=== PATIENT | male | born 1995 | race African-American/Black ===

== ENCOUNTER → 2020-09-21 | Outpatient (CLI) | payer OTHER ==
--- NOTE | ~2020-09-21 | PF ---
[address] [address] PULMONARY FUNCTION REPORT Name: MARIA E MURRAY Room: [facility] M.R.#: [id number] Admission: 09/21/20 Attend Phys: Solomon De Souza MD Discharge: Date of : 89 Report #: [id number] THIS REPORT FOR: cc: Solomon De Souza MD,Solomon Thakur,Nghia SANDY ~ DATE OF SERVICE: 09/21/2020 The FEV1/FVC ratio is normal at 84% with an FVC normal at 90% and FEV1 normal at 92%. The [id number] is also normal at 101%. After the administration of a bronchodilator, there is no significant change in any of these values. The patient's post-bronchodilator FEV1 is noted to be 4.97 liters. IMPRESSION: Normal spirometry with reversibility. It is noted that normal spirometry with reversibility; however, does not rule out bronchial asthma. By: [id number] Thakur MD /nt
--- NOTE | ~2020-09-21 | PF ---
[address] [address] PULMONARY FUNCTION REPORT Name: MARIA E MURRAY Room: [facility] M.R.#: [id number] Admission: 09/21/20 Attend Phys: Solomon De Souza MD Discharge: Date of : 89 Report #: [id number] THIS REPORT FOR: cc: Solomon De Souza MD,Solomon Thakur,Nghia SANDY ~ DATE OF SERVICE: 09/21/2020 SPIROMETRY The FEV1/FVC ratio is normal at 84% with an FVC normal at 90%. The FEV1 is normal at 92%. [id number] is also normal at 101%. After the administration of a bronchodilator, there is no significant change in any of these values. The patient's post-bronchodilator FEV1 is noted to be 4.97 liters. IMPRESSION: Normal spirometry with reversibility. Note that a normal spirometry with reversibility does not rule out bronchial asthma. By: [id number] Wilian Thakur MD /nt
--- NOTE | 2020-09-21 12:59 | 2DMMODE ---
[place] [address] 2 D/M-MODE ECHOCARDIOGRAM Name: MARIA E MURRAY Room: [facility]#: [id number] Admission: 09/21/20 Attend Phys: Solomon De Souza MD Discharge: Date of : 89 Date of Service: 09/21/20 1259 Report #: [id number] THIS REPORT FOR: cc: Solomon De Souza MD,Solomon Thompson,Dre Wagner MD [facility] ~ APPROVED REPORT Study performed: 09/21/2020 10:23:37 EXAM: Comprehensive 2D, Doppler, and color-flow Echocardiogram Patient Location: Out-Patient BSA: 2.31 HR: 72 bpm BP: 132/78 mmHg Other Information Study Quality: Good Indications Dyspnea Chest Pain 2D Dimensions IVSd: 8.19 (7-11mm) LVOT Diam: 21.81 (18-24mm) LVDd: 48.97 mm PWd: 8.99 (7-11mm) Ascending Ao: 30.74 (22-36mm) LVDs: 30.27 (25-40mm) Aortic Root: 34.37 mm Volumes Left Atrial Volume (Systole) LA ESV Index: 11.10 mL/m2 Aortic Valve AoV Peak Júnior.: 1.00 m/s AO Peak Gr.: 3.97 mmHg LVOT Max P.07 mmHg AO Mean Gr.: 2.27 mmHg LVOT Mean P.61 mmHg LVOT Max V: 0.88 m/s AO V2 VTI: 15.75 cm LVOT Mean V: 0.59 m/s YVONNE (VTI): 3.89 cm2 LVOT V1 VTI: 16.41 [place] [address] 2 D/M-MODE ECHOCARDIOGRAM Name: MARIA E MURRAY Room: [facility]#: [id number] Admission: 09/21/20 Attend Phys: Solomon De Souza MD Discharge: Date of : 89 Date of Service: 09/21/20 1259 Report #: [id number] E/A Ratio: 0.79 MV Decel. Time: 244.49 ms MV E Max Júnior.: 0.40 m/s MV PHT: 70.90 ms MVA (PHT): 3.10 cm2 TDI E/Lateral E': 3.33 E/Medial E': 5.71 Medial E' Júnior.: 0.07 m/s Lateral E' Júnior.: 0.12 m/s Pulmonary Valve PV Peak Júnior.: 0.90 m/s PV Peak Gr.: 3.27 mmHg Left Ventricle The left ventricle is normal size. There is normal LV segmental wall motion. There is normal left ventricular wall thickness. Left ventricular systolic function is normal. LVEF is 55-60%. The left ventricular diastolic function is normal. Right Ventricle The right ventricle is normal size. The right ventricular systolic function is normal. Atria The left atrium size is normal. The right atrium size is normal. Aortic Valve The aortic valve is normal in structure. No aortic regurgitation is present. There is no aortic valvular stenosis. Mitral Valve The mitral valve is normal in structure. There is no mitral valve regurgitation noted. No evidence of mitral valve stenosis. Tricuspid Valve The tricuspid valve is normal in structure. There is no tricuspid valve regurgitation noted. Pulmonic Valve The pulmonary valve is normal in structure. There is no pulmonic valvular regurgitation. Great Vessels The aortic root is normal in size. IVC [place] [address] 2 D/M-MODE ECHOCARDIOGRAM Name: TREVORMARIA E [id number] Admission: 09/21/20 Attend Phys: Solomon De Souza MD Discharge: Date of : 89 Date of Service: 09/21/20 1259 Report #: [id number] collapses >50% with inspiration. Pericardium There is no pericardial effusion. <Conclusion> The left ventricle is normal size. There is normal left ventricular wall thickness. Left ventricular systolic function is normal. LVEF is 55-60%. IVC is normal in size and collapses >50% with inspiration. <ELECTRONICALLY SIGNED> By: Dre Thompson MD, FACC 09/21/20 1259 1259 1259 Dre Thompson MD, FACC /INF
== END ==
LOC: M.CRD 10:00
PROVIDERS: ATTEND Orthopaedic Surgery
DX: R07.9 Chest pain, unspecified (principal); R06.00 Dyspnea, unspecified; I10 Essential (primary) hypertension